=== PATIENT | male | born 1970 | race Caucasian/White ===

== ENCOUNTER 2018-12-31 19:08 | Emergency (ER) | payer MEDICAID ==
[~2018-12-31] VITALS: Ht 170.2 cm; Wt 63.5 kg
[2018-12-31 19:18] VITALS: Ht 170.2 cm; Wt 63.5 kg
[2018-12-31 19:41] LABS: BASOPHIL % 0.4 % (0-2); PLATELET COUNT 207 x10^3mcL (130-400); RED CELL DISTRIBUTION WIDTH 13.7 % (11.5-14.5)
[2018-12-31 19:52] LABS: CALCIUM 9.1 mg/dL (8.5-10.1); CARBON DIOXIDE 24.5 mmol/L (21-32); CHLORIDE SERUM 106 mmol/L (98-107); CREATININE SERUM 0.8 mg/dL (0.7-1.3); GFR1 > 60 mL/min; GLUCOSE SERUM 106 mg/dL (74-106); POTASSIUM SERUM 3.7 mmol/L (3.5-5.1); SODIUM SERUM 144 mmol/L (136-145)
[2018-12-31 20:03] LABS: ALBUMIN 3.9 g/dL (3.4-5.0); ALKALINE PHOSPHATASE 78 U/L (46-116); ALT/SGPT 26 U/L (16-63); AST/SGOT 19 U/L (15-37); BILIRUBIN TOTAL 0.34 mg/dL (0.20-1.00); TOTAL PROTEIN, SERUM 7.1 g/dL (6.4-8.2)
[2018-12-31 22:58] VITALS: BP 141/83
== END 2018-12-31 22:59 | disposition short-term general hospital (02) ==
LOC: ED 19:08
PROVIDERS: Emergency Medicine
DX: S81.811A Laceration without foreign body, right lower leg, initial encounter (principal); Z98.890 Other specified postprocedural states; W26.8XXA Contact with other sharp object(s), not elsewhere classified, initial encounter; Y93.89 Activity, other specified; Y92.89 Other specified places as the place of occurrence of the external cause; Y99.8 Other external cause status
CPT/HCPCS: 90715; G0480; J0690; J2270; J2405; J7030; J7060; Q0092

== ENCOUNTER 2019-01-03 15:04 | Emergency (ER) | payer MEDICAID ==
[~2019-01-03] VITALS: Ht 157.5 cm; Wt 53.1 kg
[2019-01-03 15:22] VITALS: BP 145/65; Ht 157.5 cm; Wt 53.1 kg
== END 2019-01-03 16:23 | disposition left against medical advice (07) ==
LOC: ED 15:04
DX: Z53.21 Procedure and treatment not carried out due to patient leaving prior to being seen by health care provider (principal)